=== PATIENT | female | born 1965 | race African-American/Black ===

== ENCOUNTER 2021-03-26 04:03 | Day surgery (SDC) | payer OTHER ==
[2021-03-24 14:04] VITALS: BMI 22.6
[2021-03-26] MEDS ORDERED: LIDOCAINE 1% P/F 10 MG/ML VIAL PNB ONE (10:08)
[2021-03-26] MEDS ORDERED: DEXAMETHASONE SOD PHOSPHATE 10 MG/1 ML VIAL IVPUSH ONE (10:08)
[2021-03-26] MEDS ORDERED: IOHEXOL 180 MG/1 ML ML IJ ONE (10:09)
[2021-03-26 11:18] VITALS: BP 150/84; PULSE 80; TEMP 97.4
== END 2021-03-26 11:20 | disposition home or self-care (01) ==
LOC: JASU-SURG 04:03
PROVIDERS: ATTEND Pain Medicine Pain Medicine
PROC: 3E0R33Z Introduction of Anti-inflammatory into Spinal Canal, Percutaneous Approach (ICD-10-PCS; 2021-03-26)
PROC: B01BYZZ Fluoroscopy of Spinal Cord using Other Contrast (ICD-10-PCS; 2021-03-26)
PROC: 3E0R3BZ Introduction of Anesthetic Agent into Spinal Canal, Percutaneous Approach (ICD-10-PCS; principal; 2021-03-26 09:30)
DX: M54.16 Radiculopathy, lumbar region (principal); M48.061 Spinal stenosis, lumbar region without neurogenic claudication
CPT/HCPCS: 76000-TC-FY; J1100

== ENCOUNTER 2024-03-06 14:49 | Inpatient (IN) | payer OTHER ==
[2024-03-06] MEDS ORDERED: METOCLOPRAMIDE HCL 10 MG TABLET (FP) PO ONE (16:44)
[2024-03-06] MEDS ORDERED: HYDROmorphone HCL CARPU-JECT 2 MG/1 ML DISP.SYRIN ONE ×3 (17:38→20:45)
[2024-03-06] MEDS ORDERED: METOCLOPRAMIDE HCL INJECTION 10 MG/2 ML VIAL ONE (17:39)
[2024-03-06] MEDS ORDERED: ONDANSETRON 4 MG/2 ML VIAL ONE (17:39)
[2024-03-06 17:41] LABS: BASO % 0.5 % (0-2.0); EOS % 3.5 % (0-4.5); HEMATOCRIT 32.9 % (32.4-45.2); HEMOGLOBIN 11.1 GM/dL (10.7-15.3); MCH 29.4 pg (25.7-33.7); MCHC 33.6 g/dl (32.0-36.0); MEAN CELL VOLUME 87.7 fl (80-96); MEAN PLT VOLUME 6.1 fl (7.5-11.1); PLATELET COUNT 465 10^3/uL (134-434); RBC 3.76 M/mm3 (3.60-5.2); RDW 16.1 % (11.6-15.6); WHITE BLOOD COUNT 6.8 K/mm3 (4.0-10.0)
[2024-03-06] MEDS: SODIUM CHLORIDE 0.9% 500 ML INFUS.BAG IV ONE (17:53)
[2024-03-06] MEDS: ONDANSETRON 4 MG/2 ML VIAL IVPUSH ONE (17:53)
[2024-03-06] MEDS: HYDROmorphone HCl 2 MG/ML VIAL IVPUSH ONE ×4 (17:54→20:49)
[2024-03-06 18:03] LABS: CALCIUM 9.6 mg/dL (8.5-10.1)
[2024-03-06 18:06] LABS: CREATININE 0.9 mg/dL (0.55-1.3)
[2024-03-06 18:08] LABS: BILIRUBIN,TOTAL 0.4 mg/dL (0.2-1)
[2024-03-06 18:17] LABS: INR 1.05 (0.83-1.09); PROTHROMBIN TIME (PATIENT) 12.1 SEC (9.7-13.0)
[2024-03-06 18:19] LABS: ACTIVATED PTT 33.1 SECONDS (25.2-36.5)
[2024-03-06] MEDS ORDERED: QUEtiapine FUMARATE 100 MG TABLET (FP) ONE (23:19)
[2024-03-06] MEDS: QUEtiapine FUMARATE 400 MG TABLET PO ONE (23:24)
[2024-03-07] MEDS ORDERED: METOCLOPRAMIDE HCL INJECTION 10 MG/2 ML VIAL IVPUSH PRN (01:08)
[2024-03-07] MEDS: MAGNESIUM CITRATE 300 ML BOTTLE PO ONE (01:37)
[2024-03-07] MEDS: SODIUM CHLORIDE 1,000 ML IV SCH (01:56)
[2024-03-07] MEDS: ACETAMINOPHEN 1000 MG/100 ML BAG IVPB SCH (02:27)
[2024-03-07] MEDS ORDERED: PIPERACILLIN/TAZOB 2.25 GM 2.25 GM/50 ML BAG IVPB ONE (02:29)
[2024-03-07] MEDS: PIPERACILLIN/TAZOB 2.25 GM 2.25 GM in DEXTROSE 5%-WATER - 50 ML IVPB SCH (02:30)
[2024-03-07] MEDS: MINERAL OIL ENEMA 133 ML ENEMA RC ONE ×2 (03:18→03:24)
[2024-03-07 03:35] VITALS: BMI 19.2
[2024-03-07] MEDS: INSULIN ASPART SLIDING SCALE (NOVOLOG) 1 VIAL SQ SCH (06:06)
[2024-03-07 09:09] LABS: BASO % 0.6 % (0-2.0); EOS % 6.2 % (0-4.5); HEMATOCRIT 30.5 % (32.4-45.2); HEMOGLOBIN 9.9 GM/dL (10.7-15.3); LYMPH % 43.9 % (8-40); MCH 28.9 pg (25.7-33.7); MCHC 32.5 g/dl (32.0-36.0); MEAN CELL VOLUME 88.9 fl (80-96); MEAN PLT VOLUME 6.4 fl (7.5-11.1); MONO % 12.6 % (3.8-10.2); NEUT % 36.7 % (42.8-82.8); PLATELET COUNT 439 10^3/uL (134-434); RBC 3.43 M/mm3 (3.60-5.2); RDW 15.8 % (11.6-15.6); WHITE BLOOD COUNT 6.5 K/mm3 (4.0-10.0)
[2024-03-07] MEDS: NICOTINE 21 MG/24 HOURS TOPICAL PATCH TD SCH (09:10)
[2024-03-07] MEDS: POLYETHYLENE GLYCOL (HEALTHYLAX) 3350 17 GM PACKET PO SCH (09:10)
[2024-03-07] MEDS: levETIRAcetam 500 MG TABLET (FP) PO SCH (09:10)
[2024-03-07] MEDS: LISINOPRIL 10 MG TABLET PO SCH (09:10)
[2024-03-07 09:29] LABS: POTASSIUM 4.2 mmol/L (3.5-5.1)
[2024-03-07 09:32] LABS: ALBUMIN 2.6 g/dl (3.4-5.0); BLOOD UREA NITROGEN 14.1 mg/dL (7-18); CALCIUM 9.3 mg/dL (8.5-10.1); MAGNESIUM 2.1 mg/dL (1.8-2.4)
[2024-03-07 09:36] LABS: CREATININE 0.8 mg/dL (0.55-1.3); PHOSPHOROUS 3.6 mg/dL (2.5-4.9)
[2024-03-07 09:37] LABS: BILIRUBIN,TOTAL 0.5 mg/dL (0.2-1); TOT PROT 6.8 g/dl (6.4-8.2)
[2024-03-07] MEDS ORDERED: WITCH HAZEL 50% (TUCKS) 40 PAD/JAR PAD TP PRN (10:04)
[2024-03-07] MEDS ORDERED: ACETAMINOPHEN 1000 MG/100 ML BAG IVPB PRN (10:08)
[2024-03-07] MEDS: HYDROmorphone HCL CARPU-JECT 2 MG/1 ML DISP.SYRIN IVPB PRN (11:48)
[2024-03-07] MEDS: PEG 3350/NA SULF BICARB CL/KCL 4000 ML SOLN.RECON PO ONE (11:49)
[2024-03-07] MEDS: BENZOCAINE 28 GM HEMORRHOIDAL OINTMENT RC PRN (16:08)
[2024-03-07] MEDS: HYDROCORTISONE 2.5% TOPICAL CREAM 30 GM TUBE RC SCH (16:08)
[2024-03-07] MEDS ORDERED: PIPERACILLIN/TAZOB 3.375 GM 3.375 GM in DEXTROSE 5%-WATER - 50 ML IVPB SCH (18:00)
[2024-03-07] MEDS: ACETAMINOPHEN 1000 MG/100 ML BAG IVPB PRN (18:14)
[2024-03-07] MEDS: MINERAL OIL ENEMA 133 ML ENEMA RC SCH (19:23)
[2024-03-07] MEDS: QUEtiapine FUMARATE 50 MG TABLET PO SCH (21:28)
[2024-03-08] MEDS ORDERED: PIPERACILLIN/TAZOB 2.25 GM 2.25 GM in DEXTROSE 5%-WATER - 50 ML IVPB SCH (03:00)
[2024-03-08] MEDS: CEFTRIAXONE 1 GM in DEXTROSE 5%-WATER - 50 ML IVPB SCH (09:27)
[2024-03-08 09:41] LABS: BASO % 0.3 % (0-2.0); EOS % 1.8 % (0-4.5); HEMATOCRIT 29.6 % (32.4-45.2); HEMOGLOBIN 9.9 GM/dL (10.7-15.3); LYMPH % 32.9 % (8-40); MCH 29.1 pg (25.7-33.7); MCHC 33.5 g/dl (32.0-36.0); MEAN PLT VOLUME 6.1 fl (7.5-11.1); MONO % 9.7 % (3.8-10.2); NEUT % 55.3 % (42.8-82.8); PLATELET COUNT 471 10^3/uL (134-434); RDW 15.4 % (11.6-15.6); WHITE BLOOD COUNT 6.5 K/mm3 (4.0-10.0)
[2024-03-08 10:07] LABS: ALBUMIN 2.7 g/dl (3.4-5.0)
[2024-03-08 10:09] LABS: BILIRUBIN,TOTAL 0.5 mg/dL (0.2-1)
[2024-03-08 10:10] LABS: CREATININE 0.7 mg/dL (0.55-1.3)
[2024-03-08 10:14] LABS: MAGNESIUM 2.1 mg/dL (1.8-2.4)
[2024-03-08] MEDS: ACETAMINOPHEN 1000 MG/100 ML BAG IVPB SCH (13:07)
[2024-03-08] MEDS: POLYETHYLENE GLYCOL (HEALTHYLAX) 3350 17 GM PACKET PO SCH (13:07)
[2024-03-08] MEDS: METHYLNALTREXONE BROMIDE 8 MG/0.4 ML SYRINGE SQ ONE (13:19)
[2024-03-08] MEDS: ONDANSETRON 4 MG/2 ML VIAL IVPUSH PRN (14:40)
[2024-03-08] MEDS ORDERED: KETOROLAC TROMETHAMINE 30 MG/1 ML VIAL IVPUSH PRN (15:55)
[2024-03-09] MEDS: HYDROmorphone HCl 2 MG/ML VIAL IVPB PRN (10:12)
[2024-03-09] MEDS: METHYLNALTREXONE BROMIDE 8 MG/0.4 ML SYRINGE SQ SCH (11:55)
[2024-03-09] MEDS: amLODIPine BESYLATE 5 MG TABLET (FP) PO ONE (23:05)
[2024-03-10] MEDS: MELATONIN 5 MG TABLETS PO ONE (01:31)
[2024-03-10 08:13] LABS: BASO % 0.5 % (0-2.0); EOS % 1.8 % (0-4.5); HEMATOCRIT 35.5 % (32.4-45.2); HEMOGLOBIN 12.1 GM/dL (10.7-15.3); LYMPH % 32.8 % (8-40); MCH 29.3 pg (25.7-33.7); MEAN CELL VOLUME 86.1 fl (80-96); MONO % 11.6 % (3.8-10.2); NEUT % 53.3 % (42.8-82.8); PLATELET COUNT 533 10^3/uL (134-434); RBC 4.13 M/mm3 (3.60-5.2); RDW 16.2 % (11.6-15.6); WHITE BLOOD COUNT 9.2 K/mm3 (4.0-10.0)
[2024-03-10 08:21] LABS: POTASSIUM 3.6 mmol/L (3.5-5.1)
[2024-03-10 08:24] LABS: MEAN PLT VOLUME 5.7 fl (7.5-11.1)
[2024-03-10 08:25] LABS: BLOOD UREA NITROGEN 10.6 mg/dL (7-18); CALCIUM 9.8 mg/dL (8.5-10.1)
[2024-03-10 08:30] LABS: CREATININE 0.7 mg/dL (0.55-1.3)
[2024-03-10 08:33] LABS: BILIRUBIN,TOTAL 0.6 mg/dL (0.2-1)
[2024-03-10 08:42] LABS: ALBUMIN 3.2 g/dl (3.4-5.0)
[2024-03-10] MEDS: HYDROmorphone HCl 2 MG/ML VIAL IVPUSH ONE (10:54)
[2024-03-10] MEDS ORDERED: LORazepam 2 MG/ML SDV VIAL IVPUSH PRN (16:00)
[2024-03-10] MEDS ORDERED: QUEtiapine FUMARATE 50 MG TABLET PO SCH (16:03)
[2024-03-10] MEDS: LORazepam 2 MG/ML SDV VIAL IVPUSH ONE (16:23)
[2024-03-10] MEDS: HALOPERIDOL LACTATE 5 MG/ML IM ONE (17:44)
[2024-03-10] MEDS: QUEtiapine FUMARATE 50 MG TABLET PO SCH (22:46)
[2024-03-11 08:31] VITALS: BP 145/82; PULSE 103; RESP 19; TEMP 98.8
== END 2024-03-11 11:12 | disposition home or self-care (01) | DRG 249 ==
LOC: JER 14:49 → JERBED 03-07 01:14 → OBSVTOIN 03-07 01:14 → J8W 03-07 03:03 → J7W 03-08 14:39
PROVIDERS: ADMIT Internal Medicine
DX: K52.89 Other specified noninfective gastroenteritis and colitis (principal); E43 Unspecified severe protein-calorie malnutrition; E11.22 Type 2 diabetes mellitus with diabetic chronic kidney disease; R56.9 Unspecified convulsions; M10.9 Gout, unspecified; K21.9 Gastro-esophageal reflux disease without esophagitis; J44.9 Chronic obstructive pulmonary disease, unspecified; F41.9 Anxiety disorder, unspecified; D75.839 Thrombocytosis, unspecified; I12.9 Hypertensive chronic kidney disease with stage 1 through stage 4 chronic kidney disease, or unspecified chronic kidney disease; N18.9 Chronic kidney disease, unspecified; K62.5 Hemorrhage of anus and rectum; K59.09 Other constipation; D57.3 Sickle-cell trait; K64.4 Residual hemorrhoidal skin tags; Z68.1 Body mass index [BMI] 19.9 or less, adult; Z79.84 Long term (current) use of oral hypoglycemic drugs
CPT/HCPCS: 36415; 71045-TC-FY; 74177-TC; 80053; 82272; 82962; 83735; 84100; 84484; 85025; 85045; 85610; 85730; 86140; 93005; 93010; 99285-25; J0131; Q9967